=== PATIENT | female | born 1950 | race Two or more races ===

== ENCOUNTER 2024-01-18 10:58 | Emergency (ER) | payer OTHER ==
[~2024-01-18] VITALS: Ht 152.4 cm; Wt 54.0 kg
[2024-01-18] MEDS ORDERED: TENORMIN25 MG (11:15)
[2024-01-18] MEDS ORDERED: ZESTRIL2.5 MG (11:15)
[2024-01-18 13:54] LABS: HEMATOCRIT 42.6 % (36.0-45.00); HEMOGLOBIN 14.8 g/dL (12.0-15.00); MEAN CELL VOLUME 92.4 fL (80.00-100.00); MEAN CORPUSCULAR HEMOGLOBIN 32.1 pg (27.00-32.0); MEAN CORPUSCULAR HGB CONC 34.7 g/dl (32.0-36.0); RED BLOOD COUNT 4.61 M/uL (4.00-6.00); RED CELL DISTRIBUTION WIDTH 13.2 % (11.5-14.5)
[2024-01-18 13:56] LABS: PLATELET COUNT 128 K/uL (150-450)
[2024-01-18 14:03] LABS: CALCIUM 9.6 mg/dL (8.5-10.1); CREATININE SERUM 0.76 mg/dL (0.55-1.02); GFR 75.02; POTASSIUM 3.22 mEq/L (3.5-5.1)
[2024-01-18 14:39] LABS: PH,URINE 5.5 (5.0-8.0); URINE APPEARANCE Turbid; URINE BILIRRUBIN Negative (NEGATIVE); URINE BLOOD Large; URINE COLOR Yellow; URINE GLUCOSE Negative (NEGATIVE); URINE KETONE Negative (NEGATIVE); URINE LEUKOCYTE Large; URINE NITRATE Positive; URINE PROTEIN 30 (NEGATIVE)
[2024-01-18 14:42] LABS: URINE EPITHELIAL CELLS 6.8 uL (0.0-38.8)
[2024-01-18 14:48] LABS: URINE BACTERIA > 9821.5 uL (0.0-1933); URINE WBC > 5548.3 uL (0.0-23.2)
[2024-01-18] MEDS ORDERED: CEFTRIAXONE SODIUM 1,000 MG VIAL IM STA (14:56)
[2024-01-18] MEDS ORDERED: CEFTRIAXONE SODIUM 1,000 MG VIAL ONE (15:02)
== END 2024-01-18 15:09 | disposition home or self-care (01) ==
LOC: ER 11:00
PROVIDERS: General Practice
DX: N39.0 Urinary tract infection, site not specified (principal); B96.20 Unspecified Escherichia coli [E. coli] as the cause of diseases classified elsewhere
CPT/HCPCS: 36415; 96372; 99283; J0696